=== PATIENT | male | born 1980 | race Caucasian/White ===

== ENCOUNTER 2017-12-28 21:01 | Emergency (ER) | payer OTHER ==
[2017-12-28 21:22] VITALS: BP 145/88
[2017-12-28] MEDS ORDERED: NORCO 5/325 PO ONE (22:43)
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
== END 2017-12-28 23:45 | disposition home or self-care (01) ==
LOC: ED 21:01
DX: S29.011A Strain of muscle and tendon of front wall of thorax, initial encounter (principal); V89.2XXA Person injured in unspecified motor-vehicle accident, traffic, initial encounter; Y93.89 Activity, other specified; Y92.89 Other specified places as the place of occurrence of the external cause; Y99.8 Other external cause status
CPT/HCPCS: 99283